=== PATIENT | female | born 1955 | race Hispanic/Latino ===

== ENCOUNTER 2017-02-12 13:15 | Emergency (ER) | payer OTHER ==
[2017-02-12 13:18] VITALS: BMI 43.2
--- NOTE | 2017-02-12 14:22 | ED PDOC ---
Arrival/HPI - General Chief Complaint: Shortness Of Breath Time Seen by Provider: 02/12/17 13:23 Historian: Patient - History of Present Illness Narrative History of Present Illness (Text): 02/12/17 14:22 A 61 year old female, whose past medical history includes diabetes, presents to the emergency department complaining of shortness of breath for a week. Patient also notes a dry cough, dyspnea on exertion, sleep orthopnea accompanied with diaphoresis on exertion and some nausea. Patient denies chest pain or any other complaints at this time. PMD: Dr. Diggs Time/Duration: 1 week Symptom Onset: Sudden Symptom Course: Unchanged Activities at Onset: Rest Context: Home Past Medical History - Provider Review Nursing Documentation Reviewed: Yes - Infectious Disease Hx of Infectious Diseases: None - Psychiatric Hx Substance Use: No - Surgical History Hx Section: Yes (x3) Hx Hysterectomy: Yes - Anesthesia Hx Anesthesia: Yes Hx Anesthesia Reactions: No Family/Social History - Physician Review Nursing Documentation Reviewed: Yes Family/Social History: No Known Family HX Smoking Status: Never Smoked Hx Alcohol Use: No Hx Substance Use: No Allergies/Home Meds Allergies/Adverse Reactions: Allergies No Known Allergies Allergy (Verified 02/12/17 13:18) Review of Systems - Physician Review All systems were reviewed & negative as marked: Yes Physical Exam - Physical Exam Narrative Physical Exam (Text): 02/12/17 14:20- Review of Systems Constitutional: Normal. absent: Fatigue, Weight Change, Fevers Eyes: Normal ENT: Normal Respiratory: cough, shortness of breath Cardiovascular: dyspnea on exertion absent: Chest pain, Palpitations, Syncope Gastrointestinal: nausea absent: Abdominal pain, Diarrhea, Vomiting Genitourinary: Normal. absent: Dysuria, Frequency, Hematuria Musculoskeletal: Normal. absent: Arthralgias, Back Pain, Neck Pain Skin: Normal Neurological: diaphoresis absent: Focal Weakness Endocrine: Normal Hemo/Lymphatic: Normal Psychiatric: Normal - Physical exam Patient appears age appropriate, speaking full sentences without difficulty - Systems Exam Head: Present: Atraumatic, Normocephalic Pupils: Present: PERRL Extraocular Muscles: Present: EOMI Conjunctiva: Present: Normal Mouth: Present: Moist Mucous Membranes Neck: Present: Normal Range of Motion. No: MIDLINE TENDERNESS, Paraspinal Tenderness Respiratory/Chest: Present: Clear to Auscultation, Good Air Exchange. No: Respiratory Distress, Accessory Muscle Use, Tachypnic Cardiovascular: Present: tachycardic, Peripheral Pulses Present. No: Murmurs Abdomen: Present: Normal Bowel Sounds, No: Tenderness, Peritoneal Signs, Rebound, Guarding, Distention Back: Present: Normal Inspection. No: Midline Tenderness, Paraspinal Tenderness Upper Extremity: Present: Normal Inspection. No: Cyanosis, Edema Lower Extremity: Present: Normal Inspection. No: Edema Neurological: Present: GCS=15, Speech Normal, cranial nerves II through XII fully intact with no cerebellar abnormality, neuro-sensory fully intact. No focal neurological deficits. Skin: Present: Warm, Dry, Normal Color. No: Rashes Lymphatic: Present: OX3, NI, NC Psychiatric: Present: Alert, Oriented x 3, Normal Insight, Normal Concentration Vital Signs Reviewed: Yes Vital Signs Temp Pulse Resp BP Pulse Ox 02/12/17 16:18 94 H 18 157/80 H 93 L 02/12/17 13:17 99.6 F 101 H 22 177/84 H 95 Temperature: Afebrile Blood Pressure: Hypertensive Pulse: Tachycardic Respiratory Rate: Normal Appearance: Positive for: Well-Appearing, Non-Toxic, Comfortable Pain Distress: None Mental Status: Positive for: Alert and Oriented X 3 Medical Decision Making ED Course and Treatment: 02/12/17 14:18 Impression: A 61 year old female with shortness of breath and cough. No acute findings on physical exam. Differential Diagnosis included but are not limited to: congestive heart failure vs. acute coronary syndrome Plan: -- EKG -- chest xray -- labs -- Aspirin, Nitroglycerin -- Reassess and disposition Progress Notes: EKG: EKG shows NSR at [address]-segment elevations, normal intervals. Interpreted by me. 02/12/17 14:46 chest xray: Creator : Arie Cortes MD IMPRESSION: There is a patchy infiltrate in the region of the right middle lobe consistent with pneumonia. 02/12/17 17:26 pt's ddimer elevated CTA ordered, but pt refused pt offered admission into the hospital, but also refused, states she would like to be dc'd home instead The patient refuses admission and wishes to leave the Emergency Department against my medical advice. Patient was told that admission to the hospital is necessary and a full explanation of the reasons why was given, and understood by patient. The risks of leaving were explained and include worsening of condition, and permanent disability and from an undiagnosed or untreated condition. The patient accepts these risks, and is in my judgment is competent and capable of understanding the clinical situation and my explanation of the risks of leaving. Patient was given the opportunity to ask questions and change mind. The patient was instructed regarding the best care for the present symptoms, and to follow up with her primary physician as soon as possible, or return to the Emergency Department at any time for continuing care. - Lab Interpretations Lab Results: 02/12/17 14:10 02/12/17 14:10 Lab Results 02/12/17 14:30: D-Dimer, Quantitative 2.19 H 02/12/17 14:10: Sodium 137, Potassium 3.7, Chloride 101, Carbon Dioxide 26, Anion Gap 14, BUN 17, Creatinine 0.7, Est GFR ( Amer) > 60, Est GFR (Non- Af Amer) > 60, Random Glucose 154 H, Calcium 8.8, Total Bilirubin 0.6, AST 16, ALT 27, Alkaline Phosphatase 90, Lactate Dehydrogenase 544, Total Creatine Kinase 156, Troponin I < 0.01, Total Protein 7.0, Albumin 3.2, Globulin 3.8, Albumin/Globulin Ratio 0.8 L 02/12/17 14:10: PT 11.4, INR 1.06, APTT 28.5 02/12/17 14:10: WBC 17.7 H, RBC 4.55, Hgb 13.0, Hct 39.6, MCV 87.0, MCH 28.6, MCHC 32.8, RDW 13.5, Plt Count 306, MPV 10.7, Gran % 81.5 H, Lymph % (Auto) 11.1 L, [place] % (Auto) 6.7 H, Eos % (Auto) 0.5 L, Baso % (Auto) 0.2, Gran # 14.42 H, Lymph # 2.0, [place] # 1.2 H, Eos # 0.1, Baso # 0.03 I have reviewed the lab results: Yes - RAD Interpretation Radiology Orders: 02/12/17 13:53 CHEST PORTABLE [RAD] Stat 02/12/17 15:46 ANGIO CHEST PE PROTOCOL [CT] Stat - EKG Interpretation Interpreted by ED Physician: Yes Type: 12 lead EKG - Medication Orders Current Medication Orders: Discontinued Medications Aspirin (Aspirin Chewable) 324 mg PO STAT STA Stop: 02/12/17 13:53 Last Admin: 02/12/17 14:12 Dose: 324 mg Ceftriaxone Sodium (Rocephin 1 Gram Ivpb) 1 gm in 100 mls @ 200 mls/hr IV STAT STA PRN Reason: Protocol Stop: 02/12/17 16:13 Last Admin: 02/12/17 15:59 Dose: 200 mls/hr Azithromycin (Zithromax 500mg In Ns) 500 mg in 250 mls @ 167 mls/hr IVPB STAT STA PRN Reason: Protocol Stop: 02/12/17 17:14 Last Admin: 02/12/17 16:30 Dose: 167 mls/hr Iohexol (Omnipaque 350 100 Ml) Confirm Administered Dose 350 mg .ROUTE .STK-MED ONE Stop: 02/12/17 16:59 Nitroglycerin (Nitrostat Sl Tab) 0.3 mg SL STAT STA Stop: 02/12/17 13:53 Last Admin: 02/12/17 14:11 Dose: 0.3 mg - Scribe Statement The provider has reviewed the documentation as recorded by the Nataliya Johns Provider Scribe Attestation: All medical record entries made by the Nataliya were at my direction and personally dictated by me. I have reviewed the chart and agree that the record accurately reflects my personal performance of the history, physical exam, medical decision making, and the department course for this patient. I have also personally directed, reviewed, and agree with the discharge instructions and disposition. Disposition/Present on Arrival - Present on Arrival Any Indicators Present on Arrival: No History of DVT/PE: No History of Uncontrolled Diabetes: No Urinary Catheter: No History of Decub. Ulcer: No History Surgical Site Infection Following: None - Disposition Have Diagnosis and Disposition been Completed?: Yes Diagnosis: Pneumonia Disposition: AGAINST MEDICAL ADVICE Disposition Time: 17:31 Patient Plan: Discharge Condition: GUARDED Discharge Instructions (ExitCare): Community Acquired Pneumonia (ED), Chest Pain (ED) Additional Instructions: PLEASE RETURN TO THE EMERGENCY DEPARTMENT FOR NEW OR WORSENING SYMPTOMS. RETURN RIGHT AWAY IF YOU CANNOT FOLLOW UP WITH YOUR PRIMARY CARE DOCTOR, CLINIC, OR SPECIALIST IN 1-2 DAYS. Prescriptions: Azithromycin [Zithromax] 250 mg PO DAILY #4 tab Benzonatate [Tessalon Perle] 100 mg PO Q8 PRN #12 capsule PRN Reason: Cough Referrals: Karlee Hawkins, [Primary Care Provider] - Follow up with primary Claude Long MD [Staff Provider] - Follow up with primary
[2017-02-12 14:36] LABS: BASO # 0.03 K/mm3 (0.0-2.0); BASO % 0.2 % (0.0-3.0); EOS # 0.1 (0.0-0.7); EOS % 0.5 % (1.5-5.0); GRAN # 14.42 (1.4-6.5); GRAN % 81.5 % (50.0-68.0); LYMPH % 11.1 % (22.0-35.0); MEAN CORPUSCULAR HEMOGLOBIN 28.6 pg (25.0-35.0); MEAN CORPUSCULAR HGB CONC 32.8 g/dl (31.0-37.0); MEAN PLATELET VOLUME 10.7 fl (7.0-11.0); MONO # 1.2 (0.1-0.6); MONO % 6.7 % (1.0-6.0); PLATELET COUNT 306 10^3/uL (120.0-450.0); RBC 4.55 10^6/uL (3.5-6.1); RED CELL DISTRIBUTION WIDTH 13.5 % (11.5-14.5); WHITE BLOOD COUNT 17.7 10^3/ul (4.5-11.0)
[2017-02-12 14:43] LABS: ALB/GLOB RATIO 0.8 (1.1-1.8); ALBUMIN 3.2 g/dL (3.0-4.8); ALT/SGPT 27 U/L (7-56); AST/SGOT 16 U/L (15-39); BLOOD UREA NITROGEN 17 mg/dL (7-21); CALCIUM 8.8 mg/dL (8.4-10.5); GFR AFRICAN-AMERICAN > 60; GFR NON-AFRICAN AMERICAN > 60
[2017-02-12 14:44] LABS: INR 1.06 (0.93-1.08); PARTIAL THROMBOPLASTIN TIME 28.5 Seconds (23.7-30.8); PROTHROMBIN TIME 11.4 Seconds (9.9-11.8)
--- NOTE | 2017-02-12 14:44 | RAD ---
HISTORY: cough COMPARISON: No prior. FINDINGS: LUNGS: There is a patchy infiltrate in the region of the right middle lobe consistent with pneumonia PLEURA: No significant pleural effusion identified, no pneumothorax apparent. CARDIOVASCULAR: Normal. OSSEOUS STRUCTURES: No significant abnormalities. VISUALIZED UPPER ABDOMEN: Normal. OTHER FINDINGS: None. IMPRESSION: There is a patchy infiltrate in the region of the right middle lobe consistent with pneumonia
[2017-02-12 14:54] LABS: TROPONIN I < 0.01 ng/mL
[2017-02-12] MEDS ORDERED: cefTRIAXone 1 gm 1 GM/100 ML BAG IV STA (15:44)
[2017-02-12] MEDS ORDERED: Azithromycin 500MG/NS 250ml 500 MG/250 ML BAG IVPB STA (15:45)
[2017-02-12 16:32] VITALS: O2SAT 93
[2017-02-12] MEDS ORDERED: Iohexol 350 MG/100 ML VIAL ONE (16:58)
[2017-02-12 18:10] VITALS: BP 148/69; PULSE 92; RESP 20; TEMP 102.6
--- NOTE | 2017-02-13 08:54 | CARD ---
APPROVED REPORT EKG Measurement Heart [id number] <Conclusion> Normal sinus rhythm Normal ECG
== END 2017-02-12 18:34 | disposition left against medical advice (07) ==
LOC: ED 13:15
DX: J18.9 Pneumonia, unspecified organism (principal)
CPT/HCPCS: 71010; 80053; 82550; 83615; 84484; 85025; 85378; 85610; 85730; 87040; 93005; 96365; 96366; 96367; 99285; J0456; J0696; Q9967